=== PATIENT | male | born 1955 | race Caucasian/White ===

== ENCOUNTER 2016-11-05 23:31 | Emergency (ER) | payer OTHER ==
[~2016-11-05] VITALS: Ht 172.7 cm; Wt 108.9 kg
--- NOTE | 2016-11-06 00:08 | ED UPPER/LOWER EXTREMITY COMPL ---
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 "BLOOD WAS GUSHING, SPRAYING ALL OVER THE GARG" PT ARRIVED WITH BULKY DRESSING TO RT LEG. DENIES BLOOD THINNERS. NOT VISUALIZED IN TRIAGE Triage Nurses Notes Reviewed? yes Onset: Abrupt Duration: hour(s): (2), constant Timing: recent history Severity: mild, moderate Severity Numbers: 5 Pain/Injury Location: Right: Leg. Method of Injury: scratched No Modifying Factors: none Associated Symptoms: denies HPI: 61-year-old male presents to emergency room complaining of a wound that continues to bleed for the past 2 hours to his right anterior leg. The patient states that he scratched his leg and it began bleeding. There is no other injury or trauma. Patient does not take any blood thinners. There are no modifying factors or associated symptoms otherwise he denies pain numbness or tingling no rashes to his skin fevers or chills. Past History Travel History Traveled to [place] past 21 day No Medical History Any Pertinent Medical History? none Neurological: NONE EENT: NONE Cardiovascular: NONE Respiratory: NONE Gastrointestinal: NONE Hepatic: NONE Renal: NONE Musculoskeletal: NONE Psychiatric: NONE Endocrine: NONE Surgical History Surgical History: none Psychosocial History What is your primary language Latvian Tobacco Use: Current Daily Use Daily Tobacco Use Amount/Type: => 5 Cigarettes daily ETOH Use: denies use Illicit Drug Use: denies illicit drug use Family History Hx Contributory? No Review of Systems Review of Systems Constitutional: Reports: see HPI. All Other Systems: Reviewed and Negative Comments Review of systems: See HPI, All other systems negative. Constitutional, no chills no fever, no malaise HEENT: no sore throat no congestion, no ear pain Cardiovascular: No chest pain , no palpitation , Skin, no jaundice no rashes, no change in skin Respiratory: No dyspnea no cough no sputum GI: No nausea no vomiting, no diarrhea, : No dysuria Muscle skeletal: No joint pain, no joint swelling, no back pain, no neck pain, Neurologic: No numbness no confusion, no headache Psych: No stress Heme/endocrine: No bruising no bleeding Immunology: No lymphadenopathy, Physical Exam Physical Exam General Appearance: well developed/nourished, alert, awake Comments: Well-developed well-nourished patient in no apparent distress. HEENT: Atraumatic, extraocular motion intact Neck: Supple, FROM, Back: FROM, Cardiovascular: Regular rate and rhythms Respiratory: No respiratory distress. Patient speaking in full complete sentences. Upper Extremities: full range of motion Hip/Pelvis: Atraumatic/Stable. FROM. Knee: Atraumatic/stable. FROM. No joint swelling, no effusion. No laxity. Leg: There is an oozing varicosity noted to the anterior krishnamurthy of the right leg there is no active heavy bleeding there is no ecchymosis nontender to palpation Nontender. No edema, 5 out of 5 strength in the lower extremity, normal dorsiflexion of great toe bilaterally, gross sensation is intact Ankle/Foot: Atraumatic/stable. Skin intact. FROM. No swelling, no effusion. No laxity on exam Pulses: Normal/equal DP/PT pulses bilaterally. Brisk cap refill Neuro: Alert and oriented x3 Skin: Warm & dry;No appreciable rash on exposed skin Psych: Mood affect normal, normal memory normal judgment. Progress Differential Diagnosis: contusion, sprain, avulsion, laceration, abrasion Plan of Care: Sterile dressing and kalostat applied, with no active bleeding noted. advised pt leave dressing in place x 2 days, advised return at anytime sooner with any concerns. he feels comfrotabelw ith plan cleared for dc Departure Departure Time of Disposition: 17 Disposition: HOME OR SELF CARE Condition: Stable Clinical Impression Primary Impression: Varicose vein of leg Secondary Impressions: Skin abrasion Referrals: MORRO BUCK MD (PCP/Family) Additional Instructions: Keep dressing in place until Monday. Return anytime sooner with any concerns. Departure Forms: Customer Survey General Discharge Information
[2016-11-06 02:03] VITALS: BP 99/58
== END 2016-11-06 02:09 ==
LOC: ERH 23:31
DX: I83.91 Asymptomatic varicose veins of right lower extremity (principal); S80.811A Abrasion, right lower leg, initial encounter; X58.XXXA Exposure to other specified factors, initial encounter